=== PATIENT | female | born 1940 | race Caucasian/White ===

== ENCOUNTER 2021-03-18 11:20 | Emergency (ER) | payer MEDICARE, SELFPAY ==
--- NOTE | 2021-03-18 11:23 | ED.SKABFB ---
HPI - Skin/Abscess/Foreign Bdy General Chief complaint: Skin/Abscess/Foreign Body Stated complaint: rash Time Seen by Provider: 03/18/21 11:22 Source: patient and RN notes reviewed History of Present Illness HPI narrative: Patient is a 81-year-old female who presents the urgent care with complaints of an itchy rash to bilateral forearms, the right ear, and around the eyes. Patient states that she was doing yard work 2 days ago and the rash seems to be spreading . Patient states that she has been taking [id number] Benadryl and using Benadryl spray without any relief. Patient denies of any changes in vision. No other acute complaints. No acute distress noted. Patient aware of the plan of care. Some parts of this dictation were generated by voice recognition software and may contain typographical and/or grammatical inaccuracies. Related Data Allergies Allergy/AdvReac Type Severity Reaction Status Date / Time iodine Allergy Mild Verified 09/03/11 14:31 SEAFOOD Allergy Mild Uncoded 12/29/10 12:28 Review of Systems Review of Systems: CONSTITUTIONAL: Denies fever, chills, or sweats. EYES: Denies visual changes, redness, or discharge. ENT: Denies rhinorrhea, congestion, sore throat, or otalgia. CARDIOVASCULAR: Denies chest pain, palpitations, or edema. RESPIRATORY: Denies cough or dyspnea. GASTROINTESTINAL: Denies abdominal pain, nausea, vomiting, or diarrhea. GENITOURINARY: Denies dysuria or hematuria. SKIN: Reports of itchy rash to bilateral forearms and face MUSCULOSKELETAL: Denies back pain, joint pain, or myalgia. NEUROLOGIC: Denies headache, numbness, or weakness. All other systems reviewed are negative, except as documented in HPI. PMFSH Comments At the time of my signature, I reviewed and agree with the nursing past medical, surgical, social, and family history. There is no relevant family history pertinent to the patient complaint. Exam Narrative: GENERAL: This is a well-nourished, well-developed patient, in no apparent distress. HEAD: normocephalic, atraumatic. EYES: PERRL. Sclera clear/white. Vision is grossly intact. EARS: External ears normal NOSE: External nose normal with no obvious nasal discharge, nares without redness, no rhinorrhea. THROAT: Mucous membranes moist NECK: Neck supple CARDIOVASCULAR: Regular rate and rhythm without murmurs, gallops, or rubs. RESPIRATORY: Clear to auscultation. Breath sounds equal bilaterally. No wheezes, rales, or rhonchi. SKIN: Pruritic papular Maame dermatitis noted to bilateral forearms, right eyelid, inner canthus of the left eye, and to the right ear NEURO: awake, alert, and oriented to person, place and time. There were no obvious focal neurologic abnormalities. EXTREMITIES: No clubbing, cyanosis, or edema. Course Vital Signs Vital signs: Vital Signs Temperature 97.4 F L 03/18/21 11:32 Pulse Rate 71 03/18/21 11:32 Respiratory Rate 16 03/18/21 11:32 Blood Pressure 155/74 H 03/18/21 11:32 Pulse Oximetry 98 03/18/21 11:32 Temperature 97.4 F L 03/18/21 11:34 Pulse Rate 71 03/18/21 11:34 Respiratory Rate 16 03/18/21 11:34 Blood Pressure 155/74 H 03/18/21 11:34 Pulse Oximetry 98 03/18/21 11:34 Reviewed-patient is informed that they may have pre-hypertension or hypertension based on a blood pressure reading in the department. I recommend the patient call the primary care provider listed on their discharge instructions or a physician of their choice this week to arrange follow-up for further evaluation of possible pre-hypertension or hypertension. MDM - Skin/Abscess/Foreign Bdy MDM Narrative Medical decision making narrative: Advised the patient to start the oral steroid regimen tomorrow considering you have been treated with a large dose in the clinic today. May continue to use Benadryl as needed. May use a cool wash rag to the face as needed. Use prescription cream to the affected areas avoiding near the eyes, underarms and groin. If
[2021-03-18 11:32] VITALS: BP 155/74; PULSE 71; RESP 16; TEMP 36.3; O2SAT 98
[2021-03-18 11:34] VITALS: BP 155/74; PULSE 71; RESP 16; TEMP 36.3; O2SAT 98
[2021-03-18] MEDS: predniSONE 20 MG TABLET 60 MG PO (11:37)
== END 2021-03-18 11:58 | disposition home or self-care (01) ==
PROVIDERS: Emergency Provider Nurse Practitioner Family
DX: L23.7 Allergic contact dermatitis due to plants, except food (principal)
CPT/HCPCS: 99203; G0463; J7512